=== PATIENT | male | born 1985 | race Caucasian/White ===

== ENCOUNTER 2020-12-02 14:18 | Emergency (ER) | payer OTHER ==
[~2020-12-02] VITALS: Ht 185.4 cm; Wt 95.5 kg
[2020-12-02 14:34] VITALS: BP 123/82
--- NOTE | 2020-12-02 14:46 | PHYS DOC ---
General Adult EDM: Chief Complaint: HAND PROBLEM HPI: HPI: Patient is a 35-year-old male coming in for a bump to the hypothenar palm of his right hand. Patient states he first noticed the lesion about 2 weeks ago. States that it fluctuates in size. Says it is not tender unless he hits it on something. Has not had any drainage, patient states he used a needle and tried to drain it about 1 week ago but only got blood. No systemic complaints. 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 Review of Systems: Review of Systems: All other systems within normal limits except for as noted in the HPI Allergies: Allergies: Allergies Coded Allergies Type Severity Reaction Last Updated Verified Sulfa (Sulfonamide Antibiotics) Allergy Unknown 12/02/20 Yes Physical Exam: PE: Constitutional: Well developed, well nourished, no acute distress, non-toxic appearance. [] HENT: Normocephalic, atraumatic, bilateral external ears normal, nose normal. [] Eyes: PERRLA, conjunctiva normal, no discharge. [] Neck: No rigidity, supple, no stridor. [] Cardiovascular: Regular rate and rhythm, brisk cap refill [] Lungs & Thorax: Non labored symmetric respirations, no tachypnea or respiratory distress [] Abdomen: Soft, nondistended. Skin: Warm, dry, no erythema, no rash. [] Back: Unremarkable Extremities: No deformities, range of motion grossly intact, no lower extremity edema. Approximately 1.5 to 2 cm lump on right hand [] Neurologic: Alert and oriented X 3, no focal deficits noted. [] Psychologic: Affect normal, judgement normal, mood normal. [] EKG: EKG: [] Radiology/Procedures: Radiology/Procedures: [address] [address] IMAGING REPORT Signed PATIENT: KRISTAL CORADO ACCOUNT: [id number] : 1985 LOCATION: ER AGE: 35 SEX: M EXAM STATUS: REG ER ORD. PHYSICIAN: NICOLAS SUE MD REASON: swelling in right hand. abscess/mass/sporotrichosis PROCEDURE: EXT NON VASC RIGHT US EXT NON VASC RIGHT Clinical Indication: Reason: swelling in right hand. abscess/mass/sporotrichosis. 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 Comparison: Right hand, 3 views, same day. TECHNIQUE: Real-time ultrasound imaging of the soft tissues of the right hand is performed. Findings: In the right hand at the area of concern there is a echogenic linear foreign body measuring 1.3 cm in length and 0.1 cm in width. The foreign body may be composed of wood. Surrounding the foreign body there is a hypoechoic collection measuring 1.5 x 1.8 x 0.8 cm that may represent phlegmon or developing abscess. Surrounding this collection there is hyperemia of the soft tissues. On the cine clips there is probably an additional linear foreign body that is deep to the other foreign body and is angulated in relation. It measures approximately 7 mm in length and less than 0.1 cm in width. IMPRESSION: There are 2 linear echogenic foreign bodies in the right hand area of concern. Surrounding the foreign bodies there is a hypoechoic collection that is probably phlegmon or developing abscess. Electronically signed by: Matty Benson MD (12/02/2020 3:51 PM) [facility] DICTATED AND SIGNED BY: MATTY BENSON MD DATE: 12/02/20 1545 CC: NICOLAS SUE MD; PCP,NO ~MTH0 0 [][place] [address] IMAGING REPORT Signed PATIENT: KRISTAL CORADO ACCOUNT: [id number] : 1985 LOCATION: ER AGE: 35 SEX: M EXAM STATUS: REG ER ORD. PHYSICIAN: NICOLAS SUE MD REASON: swelling, right 5th metacarpal PROCEDURE: HAND RIGHT 3V XR HAND_RIGHT 3 VIEWS History: Swelling, right fifth metacarpal. Comparison: None. Technique: 3 views of the right hand. Findings: Osseous mineralization is normal. No fracture or dislocaton. No significant degenerative changes. Mild soft tissue prominence at the ulnar aspect of the right hand. Impression: 1. Ulnar hand soft tissue swelling without acute osseous abnormality. Electronically signed by: Xander Bear MD (12/02/2020 3:17 PM) [facility] DICTATED AND SIGNED BY: XANDER BEAR MD DATE: 12/02/20 1517 CC: NICOLAS SUE MD; PCP,NO ~MTH0 0 Impressions: Foreign body removal procedure: Anesthetized with 2 cc 1% lidocaine with epinephrine. Foreign body visualized by ultrasound and an intact 1.4 cm x 0.5 cm foreign body was removed intact, partial removal of other foreign body but second object kept breaking and removal attempts. Heart Score: C/O Chest Pain: No Risk Factors: Risk Factors: DM, Current or recent (<one month) smoker, HTN, HLP, family history of CAD, obesity. Risk Scores: Score 0 - 3: 2.5% MACE over next 6 weeks - Discharge Home Score 4 - 6: 20.3% MACE over next 6 weeks - Admit for Clinical Observation Score 7 - 10: 72.7% MACE over next 6 weeks - Early Invasive Strategies Course & Med Decision Making: Course & Med Decision Making Pertinent Labs and Imaging studies reviewed. (See chart for details) [] Dragon Disclaimer: Dragon Disclaimer: This electronic medical record was generated, in whole or in part, using a voice recognition dictation system. Departure Departure: Impression: Primary Impression: Abscess of right hand Additional Impression: Foreign body (FB) in soft tissue Disposition: 01 HOME / SELF CARE / HOMELESS Condition: STABLE Referrals: PCP,NO (PCP) Patient Instructions: Incision and Drainage Additional Instructions: Return to emergency department for wound reevaluation in 2 to 3 days. Scripts Doxycycline Monohydrate (DOXYCYCLINE MONOHYDRATE) 100 Mg Capsule 1 CAP PO BID for antibiotic for 7 Days, #14 CAP Prov: NICOLAS SUE MD 12/02/20 NICOLAS SUE MD Dec 02, 2020 14:46
--- NOTE | 2020-12-02 15:20 | RAD ---
XR HAND_RIGHT 3 VIEWS History: Swelling, right fifth metacarpal. Comparison: None. Technique: 3 views of the right hand. Findings: Osseous mineralization is normal. No fracture or dislocaton. No significant degenerative changes. Mil d soft tissue prominence at the ulnar aspect of the right hand. Impression: 1. Ulnar hand soft tissue swelling without acute osseous abnormality. Electronically signed by: Xander Holm MD (12/02/2020 3:17 PM) [facility]
--- NOTE | 2020-12-02 15:53 | RAD ---
US EXT NON VASC RIGHT Clinical Indication: Reason: swelling in right hand. abscess/mass/sporotrichosis. 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 Comparison: Right hand, 3 views, same day. TECHNIQUE: Real-time ultrasound imaging of the soft tissues of the right hand is performed. Findings: In the right hand at the area of concern there is a echogenic linear foreign body measuring 1.3 cm in length and 0.1 cm in width. The foreign body may be composed of wood. Surrounding the foreign body t here is a hypoechoic collection measuring 1.5 x 1.8 x 0.8 cm that may represent phlegmon or developin g abscess. Surrounding this collection there is hyperemia of the soft tissues. On the cine clips ther e is probably an additional linear foreign body that is deep to the other foreign body and is angulat ed in relation. It measures approximately 7 mm in length and less than 0.1 cm in width. IMPRESSION: There are 2 linear echogenic foreign bodies in the right hand area of concern. Surrounding the foreig n bodies there is a hypoechoic collection that is probably phlegmon or developing abscess. Electronically signed by: Matty Benson MD (12/02/2020 3:51 PM) [facility]
[2020-12-02] MEDS ORDERED: LIDOCAINE 2% 20 ML VIAL. ONE (16:00)
[2020-12-02] MEDS ORDERED: LIDOCAINE 1%/EPI 1:100,000 10 ML VIAL. INJ ONE (16:15)
[2020-12-02] MEDS ORDERED: XYLO IJ ONE (16:15)
[2020-12-02] MEDS ORDERED: DOXY-181 PO (17:24)
[2020-12-02] MEDS ORDERED: DOXYCYCLINE HYCLATE 100 MG TABLET PO ONE (17:30)
== END 2020-12-02 17:37 | disposition home or self-care (01) ==
LOC: ER 14:18
DX: S60.551A Superficial foreign body of right hand, initial encounter (principal); L02.511 Cutaneous abscess of right hand; Z88.2 Allergy status to sulfonamides; X58.XXXA Exposure to other specified factors, initial encounter; Y93.89 Activity, other specified; Y92.89 Other specified places as the place of occurrence of the external cause; Y99.8 Other external cause status
CPT/HCPCS: 73130; 76881; 99284

== ENCOUNTER 2020-12-05 09:48 | Emergency (ER) | payer OTHER ==
[~2020-12-05] VITALS: Ht 185.4 cm; Wt 95.5 kg
[~2020-12-05 09:48] MED LIST: DOXY-181 PO
[2020-12-05] MEDS ORDERED: BACITRACIN ZINC TOPICAL OINT PACKET. TP ONE (10:30)
--- NOTE | 2020-12-05 10:44 | PHYS DOC ---
Past History Past Surgical History: No Surgical History (ENE ROSS APRN) Alcohol Use: None (ENE ROSS APRN) Adult General Chief Complaint Chief Complaint: WOUND CHECK HPI HPI Patient is a 35-year-old male who presents to the emergency department today for a wound evaluation of his right hand. Patient states he was seen here at [facility] emergency department on 12/02/2020 for an infection to the palm of his right hand that he noticed approximately 2 weeks prior. Patient states that it did fluctuate in size at that time over this 2 weeks however reports it was not tender and did not bother him unless he struck his hand against something in which he reported a 4 or 5 out of 10 pain that went away after a few minutes. Patient describes his pain as a sharp throbbing pain when he does have pain. Patient reports his tetanus immunization was less than 5 years ago. Patient reports he works in the [employer]. Patient states he is currently off work until this coming Tuesday. Patient states he was given a doxycycline antibiotic in the emergency department on Tuesday, filled his prescription on Tuesday in which he took 2 doses and again 2 doses on , and then 1 dose today, patient states his next antibiotic dose is not due until 1500. Patient reports his swelling of his right hand has improved tremendously, states he needs to have the packing removed from his right hand that was placed by the emergency department physician on his visit on the 12/02/2020. Patient reports the ED provider removed a splinter from his hand. Patient denies any fever chills, denies abdominal pain nausea vomiting diarrhea or constipation. Patient denies any loss of movement or loss of sensation to his right hand. Patient denies any other physical complaints or physical concerns. (ENE ROSS APRN) Review of Systems Review of Systems 14 body systems of review of systems have been reviewed. See HPI for pertinent positives and negative responses, otherwise all other systems are negative, nonpertinent or noncontributory. Constitutional: Negative except as outlined in HPI above. Skin: Negative except as outlined in HPI above. Eyes: Negative except as outlined in HPI above. HENT: Negative except as outlined in HPI above. Respiratory: Negative except as outlined in HPI above. Cardiovascular: Negative except as outlined in HPI above. GI: Negative except as outlined in HPI above. : Negative except as outlined in HPI above. Musculoskeletal: Negative except as outlined in HPI above. Integument: Negative except as outlined in HPI above. Neurologic: Negative except as outlined in HPI above. Endocrine: Negative except as outlined in HPI above. Lymphatic: Negative except as outlined in HPI above. Psychiatric: Negative except as outlined in HPI above. (ENE ROSS APRN) Current Medications Current Medications Current Medications Medications (Trade) Dose Ordered Sig/Karena Start Time Stop Time Status Last Admin Dose Admin Bacitracin (Bacitracin Topical Pkt) 1 pkt 1X ONCE 12/05/20 10:30 12/05/20 10:31 12/05/20 10:28 1 PKT (ENE ROSS APRN) Allergies Allergies Allergies Coded Allergies Type Severity Reaction Last Updated Verified Sulfa (Sulfonamide Antibiotics) Allergy Unknown 12/02/20 Yes (ENE ROSS APRN) Physical Exam Physical Exam Constitutional: Well developed, well nourished, no acute distress, non-toxic appearance. 35-year-old male in no apparent distress. HENT: Normocephalic, atraumatic. Eyes: Conjunctiva normal, no discharge. Neck: Normal range of motion, no stridor. Cardiovascular: No cyanosis appreciated, distal cap refill less than 2 seconds. Lungs & Thorax: Patient is in no respiratory distress, no audible adventitious lung sounds appreciated. Abdomen: Nontender, no abnormalities noted. Skin: Warm, dry, no erythema, no rash. See extremity note for focused skin examination. Back: No tenderness, no deformities. Extremities: No tenderness, no cyanosis, no clubbing, ROM intact, no edema. Except for right hand hypothenar eminence has packing gauze in place, no purulent drainage appreciated, full AROM/PROM of digits and wrist joints of the right hand, minor pain to palpation, normal skin color, is not warm to touch, no erythema or edema appreciated. Neurologic: Alert and oriented X 3, normal motor function, normal sensory function, no focal deficits noted. Psychologic: Affect normal, judgement normal, mood normal. (ENE ROSS APRN) Current Patient Data Vital Signs Vital Signs Date Time Temp Pulse Resp B/P (MAP) Pulse Ox O2 Delivery O2 Flow Rate FiO2 12/05/20 09:48 97.9 74 16 136/84 100 (ENE ROSS APRN) EKG EKG [] (ENE ROSS APRN) Radiology/Procedures Radiology/Procedures [] (ENE ROSS APRN) Heart Score C/O Chest Pain: No Risk Factors: Risk Factors: DM, Current or recent (<one month) smoker, HTN, HLP, family history of CAD, obesity. Risk Scores: Risk Factors: DM, Current or recent (<one month) smoker, HTN, HLP, family history of CAD, obesity. (ENE ROSS APRN) Course & Med Decision Making Course & Med Decision Making Pertinent Labs and Imaging studies reviewed. (See chart for details) 35-year-old male, vital signs reviewed, presents to the emergency department concerning wound recheck after I&D procedure and gauze packing was performed to his right hand palmar aspect 3 days ago here at [facility] emergency department. Physical examination reveals gauze packing in place, satisfactory healing, ED documentation from previous provider reviewed, discussed with patient ED plan to soak right hand and chlorhexidine saline solution for 15 minutes, will remove packing, explore wound, dressed with bacitracin and nonadherent bandage. Patient is amenable to this plan. Discussed with patient to remain on antibiotic regimen as directed by previous ED provider. After a 15-minute time of soaking and chlorhexidine saline solution, right hand and I&D site was scrubbed with surgical scrub brush, the packing was removed, the I&D site was irrigated with pressurized normal saline, the I&D site was explored and an additional 3 mm wooden splinter was removed with tweezer forceps, no other foreign bodies appreciated in I&D site, no purulent drainage from I&D site, scant blood oozing after soaking and irrigation and exploration process. The wound was dressed by myself with bacitracin ointment, nonadherent gauze, coban. The patient tolerated well, discussed with patient daily cleansing and dressing of I&D site, continue antibiotic regimen. Follow-up with primary care for ongoing wound care and evaluation. The patient remains pain- free after packing removal and exploration of I&D site. Patient remains neurovascular intact of the right hand. Discussed with the patient all findings and diagnostic testing as well as the need to follow-up with their primary care provider for further evaluation and treatment or return to the ED if any new or worsening symptoms. Strict return precautions were also discussed at length, the patient voiced understanding and agreement with the discharge planning. The patient was nontoxic in appearance, in no apparent distress, and hemodynamically stable at the time of disposition. (ENE ROSS APRN) Dragon Disclaimer Dragon Disclaimer This electronic medical record was generated, in whole or in part, using a voice recognition dictation system. (ENE ROSS APRN) Attending Co-Sign The patient was seen and interviewed as well as examined at the bedside. The chart was reviewed. The case was discussed. Agree with the plan of care. (AGNIESZKA PAZ DO) Departure Departure: Impression: Primary Impression: Encounter for wound re-check Additional Impression: Abscess packing removal Disposition: HOME / SELF CARE / HOMELESS Condition: GOOD Referrals: PCP,NO (PCP) Patient Instructions: Wound Check, Wound Infection Additional Instructions: You were seen today in the emergency department for a wound evaluation after a foreign body removal was performed this past Tuesday. Your packing was removed and the wound was explored, and additional splinter was removed from the open wound. Please perform daily cleansing as we discussed and daily dressings as we discussed. Please continue your antibiotic regimen that you are started on by the previous emergency department physician as directed. I have provided you a list of area physician groups that you may consider making an appointment with for ongoing wound care and evaluation. As we discussed, you may use [id number] Tylenol or Motrin for discomfort during the healing process. Please watch for signs and symptoms of reoccurring infection as we discussed. Thank you for visiting our Emergency Department. It was a pleasure taking care of you today in the emergency department and we appreciate you trusting us with your care. If any additional problems come up don't hesitate to return to visit us. Please follow up with your primary care provider so they can plan additional care if needed and know about the problem that you had. If symptoms worsen come back to the Emergency Department. Any concerning symptoms that start such as chest pain, shortness of air, weakness or numbness on one side of the body, running high fevers or any other concerning symptoms return to the ER. EMERGENCY DEPARTMENT GENERAL DISCHARGE INSTRUCTIONS Thank you for coming to [facility] (ED) today and trusting us with you care. We trust that you had a positivie experience in our Emergency Department. If you wish to speak to the department management, you may call the director at [phone]. YOUR FOLLOW UP INSTRUCTIONS ARE FOLLOWS: 1. Do you have a private Doctor? If you do not have a private doctor, please ask for a resource list of physicians or clinics that may be able to assist you with follow up care. 2. The Emergency Physician has interpreted your x-rays. The X-Ray specialist will also review them. If there is a change in the findings, you will be notified in 48 hours when at all possible. 3. A lab test or culture has been done, your results will be reviewed and you will be notified if you need a change in treatment. ADDITIONAL INSTRUCTIONS AND INFORMATION: 1. Your care today has been supervised by a physician who is specially trained in emergency care. Many problems require more than one evaluation for a complete diagnosis and treatment. We recommend that you schedule your follow up appointment as recommended to ensure complete treatment of you illness or injury. If you are unable to obtain follow up care and continue to have a problem, or if your condition worsens, we recommend that you return to the ED. 2. We are not able to safely determine your condition over the phone nor are we able to give sound medical advice over the phone. For these safety reasons, if you call for medical advice we will ask you to come to the ED for further evaluation. 3. If you have any questions regarding these discharge instructions please call the ED at [phone]. SAFETY INFORMATION: In the interest of safety, wellness, and injury prevention; we encourage you to wear your sealbelt, if you smoke; quite smoking, and we encourage family to use a protec tive helmet for bicycling and other sporting events that present an increased risk for head injury. IF YOUR SYMPTOMS WORSEN OR NEW SYMPTOMS DEVELOP, OR YOU HAVE CONCERNS ABOUT YOUR CONDITION; OR IF YOUR CONDITION WORSENS WHILE YOU ARE WAITING FOR YOUR FOLLOW UP APPOINTMENT; EITHER CONTACT YOUR PRIMARY CARE DOCTOR, THE PHYSICIAN WHOSE NAME AND NUMBER YOU WERE GIVEN, OR RETURN TO THE ED IMMEDIATELY. Problem Qualifiers ENE ROSS APRN Dec 05, 2020 10:44 AGNIESZKA PAZ DO Dec 06, 2020 06:16
== END 2020-12-05 11:19 | disposition home or self-care (01) ==
LOC: ER 09:48
DX: Z48.01 Encounter for change or removal of surgical wound dressing (principal); L02.511 Cutaneous abscess of right hand; Z88.2 Allergy status to sulfonamides
CPT/HCPCS: 99283; 99284